=== PATIENT | female | born 1995 | race Caucasian/White ===

== ENCOUNTER → 2018-02-05 | Outpatient (CLI) | payer BC ==
[2018-02-05 16:08] LABS: HEMATOCRIT 38.9 % (36.0-47.0); HEMOGLOBIN 12.9 g/dl (12.0-15.5); MEAN CORPUSCULAR HEMOGLOBIN 29.9 pg (27.0-33.0); MEAN CORPUSCULAR HGB CONC 33.2 g/dl (32.0-36.5); MEAN CORPUSCULAR VOLUME 90.3 fl (80.0-96.0); PLATELET COUNT, AUTOMATED 261 10^3/uL (150-450); RED BLOOD COUNT 4.31 10^6/uL (4.00-5.40); RED CELL DISTRIBUTION WIDTH 13.6 % (11.5-14.5); WHITE BLOOD COUNT 10.9 10^3/uL (4.0-10.0)
[2018-02-05 16:33] LABS: ALBUMIN 3.7 GM/DL (3.2-5.2); ALBUMIN/GLOBULIN RATIO 1.06 (1.00-1.93); ALKALINE PHOSPHATASE 71 U/L (45-117); ALT/SGPT 25 U/L (12-78); ANION GAP 10 MEQ/L (8-16); AST/SGOT 16 U/L (7-37); BILIRUBIN,TOTAL 0.2 MG/DL (0.2-1.0); BLOOD UREA NITROGEN 14 MG/DL (7-18); CALCIUM LEVEL 8.9 MG/DL (8.5-10.1); CARBON DIOXIDE LEVEL 25 MEQ/L (21-32); CHLORIDE LEVEL 109 MEQ/L (98-107); CREATININE FOR GFR 0.74 MG/DL (0.55-1.30); GLOMERULAR FILTRATION RATE > 60.0 (>60); GLUCOSE, FASTING 73 MG/DL (70-100); POTASSIUM SERUM 3.8 MEQ/L (3.5-5.1); SODIUM LEVEL 144 MEQ/L (136-145); TOTAL PROTEIN 7.2 GM/DL (6.4-8.2)
[2018-02-05 16:51] LABS: MALB URINE SIEMENS 6.8 MG/L; MAU/CREAT RATIO 4.5 MCG/MG (0.0-30.0)
== END ==
LOC: M LAB 14:25
DX: R53.83 Other fatigue (principal)
CPT/HCPCS: 80053

== ENCOUNTER 2018-05-29 08:33 | Outpatient (RCR) | payer BC, MEDICAID | END 2018-06-01 | LOC: M PT 08:33 | DX: M22.42 Chondromalacia patellae, left knee (principal) ==

== ENCOUNTER 2018-06-21 21:17 | Emergency (ER) | payer BC, MEDICAID | END 2018-06-22 00:20 | disposition home or self-care (01) | LOC: M ED 06-22 00:20 | DX: J06.9 Acute upper respiratory infection, unspecified (principal) | CPT/HCPCS: 87880 ==

== ENCOUNTER 2018-06-29 13:15 | Outpatient (RCR) | payer BC, MEDICAID ==
[~2018-06-29 13:15] MED LIST: CLAR1TAB2 PO
== END 2018-07-02 ==
LOC: M PT 13:15
PROVIDERS: ATTEND Orthopaedic Surgery
DX: M22.42 Chondromalacia patellae, left knee (principal)

== ENCOUNTER → 2018-08-30 | Outpatient (RCR) | payer BC, MEDICAID | LOC: M PT 08-07 09:08 | PROVIDERS: ATTEND Physician Assistant Surgical | DX: Z47.89 Encounter for other orthopedic aftercare (principal); M22.42 Chondromalacia patellae, left knee; S80.02XA Contusion of left knee, initial encounter ==

== ENCOUNTER → 2018-09-05 | Outpatient (CLI) | payer BC, MEDICAID ==
[2018-09-05 15:33] LABS: BASO % 0.3 % (0.0-1.0); EOS # 0.2 10^3/uL (0.0-0.50); EOS % 1.7 % (0.0-3.0); HEMATOCRIT 38.4 % (36.0-47.0); HEMOGLOBIN 12.8 g/dl (12.0-15.5); LYMPH # 3.1 10^3/uL (1.5-6.5); LYMPH % 27.2 % (24.0-44.0); MEAN CORPUSCULAR HEMOGLOBIN 30.8 pg (27.0-33.0); MEAN CORPUSCULAR HGB CONC 33.3 g/dl (32.0-36.5); MEAN CORPUSCULAR VOLUME 92.3 fl (80.0-96.0); MONO # 0.8 10^3/uL (0.0-0.8); MONO % 6.8 % (0.0-5.0); NEUTROPHILS # 7.3 10^3/uL (1.8-7.7); NEUTROPHILS % 63.6 % (36.0-66.0); PLATELET COUNT, AUTOMATED 266 10^3/uL (150-450); RED BLOOD COUNT 4.16 10^6/uL (4.00-5.40); WHITE BLOOD COUNT 11.5 10^3/uL (4.0-10.0)
[2018-09-05 15:33] LABS: APPEARANCE, URINE CLOUDY (CLEAR); BACTERIA, URINE AUTO 1+ (NEGATIVE); BILIRUBIN, URINE AUTO NEGATIVE (NEGATIVE); BLOOD, URINE BLOOD 1+ (NEGATIVE); COLOR, URINE YELLOW (YELLOW); GLUCOSE, URINE (UA) AUTO NEGATIVE (NEGATIVE); KETONE, URINE AUTO TRACE mg/dL (NEGATIVE); LEUKOCYTE ESTERASE, URINE AUTO NEGATIVE (NEGATIVE); MUCUS, URINE SMALL (NEGATIVE); NITRITE, URINE AUTO NEGATIVE (NEGATIVE); PROTEIN, URINE AUTO NEGATIVE (NEGATIVE); RBC, URINE AUTO 17 /HPF (0-3); SPECIFIC GRAVITY URINE AUTO 1.027 (1.002-1.035); SQUAMOUS EPITHELIAL CELL UR AU 32 /HPF (0-6); UROBILINOGEN, URINE AUTO 0.2 mg/dL (0.0-2.0); WBC, URINE AUTO 2 /HPF (0-3)
[2018-09-05 15:53] LABS: ALBUMIN 3.8 GM/DL (3.2-5.2); ALT/SGPT 19 U/L (12-78); BILIRUBIN,TOTAL 0.4 MG/DL (0.2-1.0); BLOOD UREA NITROGEN 11 MG/DL (7-18); CALCIUM LEVEL 8.6 MG/DL (8.5-10.1); CARBON DIOXIDE LEVEL 28 MEQ/L (21-32); CHLORIDE LEVEL 104 MEQ/L (98-107); CREATININE FOR GFR 0.67 MG/DL (0.55-1.30); GLOMERULAR FILTRATION RATE > 60.0 (>60); GLUCOSE, FASTING 85 MG/DL (70-100); POTASSIUM SERUM 4.1 MEQ/L (3.5-5.1); SODIUM LEVEL 138 MEQ/L (136-145); TOTAL PROTEIN 7.2 GM/DL (6.4-8.2)
== END ==
LOC: M LAB 14:50
PROVIDERS: ATTEND Physician Assistant Medical
DX: Z02.2 Encounter for examination for admission to residential institution (principal)

== ENCOUNTER 2018-09-27 08:46 | Outpatient (RCR) | payer BC, MEDICAID | END 2018-09-30 | LOC: M PT 08:46 | PROVIDERS: ATTEND Physician Assistant Surgical | DX: Z47.89 Encounter for other orthopedic aftercare (principal); M22.42 Chondromalacia patellae, left knee; S80.02XA Contusion of left knee, initial encounter ==

== ENCOUNTER 2018-10-03 14:51 | Outpatient (RCR) | payer BC, MEDICAID | END 2018-10-30 | LOC: M PT 14:51 | PROVIDERS: ATTEND Physician Assistant Surgical | DX: M94.262 Chondromalacia, left knee (principal) ==

== ENCOUNTER → 2018-11-08 | Outpatient (CLI) | payer BC, MEDICAID ==
[2018-11-08 16:54] LABS: BASO # 0.1 10^3/uL (0.0-0.2); BASO % 0.4 % (0.0-1.0); EOS # 0.2 10^3/uL (0.0-0.50); EOS % 1.6 % (0.0-3.0); HEMATOCRIT 40.4 % (36.0-47.0); HEMOGLOBIN 13.1 g/dl (12.0-15.5); LYMPH % 24.4 % (24.0-44.0); MEAN CORPUSCULAR HEMOGLOBIN 31.1 pg (27.0-33.0); MEAN CORPUSCULAR HGB CONC 32.4 g/dl (32.0-36.5); MONO # 0.8 10^3/uL (0.0-0.8); MONO % 6.4 % (0.0-5.0); NEUTROPHILS # 8.2 10^3/uL (1.8-7.7); NEUTROPHILS % 66.7 % (36.0-66.0); PLATELET COUNT, AUTOMATED 307 10^3/uL (150-450); RED BLOOD COUNT 4.21 10^6/uL (4.00-5.40); WHITE BLOOD COUNT 12.2 10^3/uL (4.0-10.0)
[2018-11-08 17:02] LABS: ALBUMIN 3.8 GM/DL (3.2-5.2); ALT/SGPT 20 U/L (12-78); BILIRUBIN,TOTAL 0.3 MG/DL (0.2-1.0); BLOOD UREA NITROGEN 11 MG/DL (7-18); CALCIUM LEVEL 8.7 MG/DL (8.5-10.1); CARBON DIOXIDE LEVEL 26 MEQ/L (21-32); CHLORIDE LEVEL 107 MEQ/L (98-107); CREATININE FOR GFR 0.78 MG/DL (0.55-1.30); GLOMERULAR FILTRATION RATE > 60.0 (>60); GLUCOSE, FASTING 80 MG/DL (70-100); POTASSIUM SERUM 4.2 MEQ/L (3.5-5.1); RHEUMATOID FACTOR QUANT < 10.0 IU/ML (<15.0); SODIUM LEVEL 141 MEQ/L (136-145); THYROID STIMULATING HORMONE 0.612 uIU/ML (0.358-3.740); TOTAL PROTEIN 6.9 GM/DL (6.4-8.2)
[2018-11-08 17:46] LABS: ERYTHROCYTE SEDIMENTATION RATE 17 mm/hr (0-20)
[2018-11-12 14:50] LABS: ANTINUCLEAR ANTIBODIES DIRECT Negative
== END ==
LOC: M LRY 13:18
PROVIDERS: ATTEND Physician Assistant Medical
DX: R51 Headache (principal)

== ENCOUNTER → 2018-11-30 | Outpatient (CLI) | payer BC, MEDICAID ==
[2018-12-04 08:57] LABS: IGASUB3 49.5 mg/dL (13.4-97.9); IgA SERUM (part of Subclasses) 372 mg/dL (87-352); TISSUE TRANSGLUTAMINASE IgA <2 U/mL (0-3); UNITSIGA FOR GLIADIN IGA 3 units (0-19); UNITSIGG FOR GLIADIN IGG 1 units (0-19)
== END ==
LOC: M LAB 11:46
PROVIDERS: ATTEND Internal Medicine Gastroenterology
DX: R19.7 Diarrhea, unspecified (principal)

== ENCOUNTER → 2018-12-20 | Outpatient (REF) | payer BC, MEDICAID ==
[2018-12-28 09:02] LABS: FATS NEUTRAL Normal (.); FATS TOTAL Normal (.); PANCREATIC ELASTASE STOOL >500 (>200)
== END ==
LOC: M LAB REF 13:22
PROVIDERS: ATTEND Internal Medicine Gastroenterology
DX: R19.7 Diarrhea, unspecified (principal)

== ENCOUNTER → 2019-02-11 | Outpatient (REF) | payer BC, MEDICAID | LOC: M LAB LCGH 11:37 | PROVIDERS: ATTEND Family Medicine | DX: Z12.4 Encounter for screening for malignant neoplasm of cervix (principal); N76.0 Acute vaginitis ==

== ENCOUNTER → 2020-01-22 | Outpatient (CLI) | payer BC, MEDICAID ==
[2020-01-22 17:49] LABS: HIV 1&2 SCREEN CENTAUR NEGATIVE (NEGATIVE)
[2020-01-22 20:52] LABS: CHLAMYDIA DNA AMPLIFICATION NEGATIVE (NEGATIVE); GC DNA AMPLIFICATION NEGATIVE (NEGATIVE)
[2020-03-18 13:33] LABS: HSV IgM TYPES 1&2 SEE SEPARATE REPORT
== END ==
LOC: M WUC 14:19
PROVIDERS: ATTEND Physician Assistant
DX: Z11.3 Encounter for screening for infections with a predominantly sexual mode of transmission (principal)

== ENCOUNTER 2020-07-17 02:46 | Emergency (ER) | payer BC, MEDICAID ==
[~2020-07-17] VITALS: Ht 154.9 cm; Wt 67.3 kg
[2020-07-17 02:48] VITALS: BP 104/44
--- OUTSIDE RECORDS SUMMARY | 2020-07-17 02:57 | CCD ---
Author Author [facility] Organization [facility] Address Unknown Phone Unavailable Care Team Providers Care Tire Trucker Name Role Phone Phyllis, Zaki PA Unavailable Unavailable Phyllis, Zaki PA Unavailable Unavailable Phyllis, Zaki PA Unavailable Unavailable Phyllis, Zaki PA Unavailable Unavailable Phyllis, Zaki PA Unavailable Unavailable Phyllis, Zaki PA Unavailable Unavailable Phyllis, Zaki PA Unavailable Unavailable Phyllis, Zaki PA Unavailable Unavailable Phyllis, Zaki PA Unavailable Unavailable Phyllis, Zaki PA Unavailable Unavailable Phyllis, Zaki PA Unavailable Unavailable Phyllis, Zaki PA Unavailable Unavailable Phyllis, Zaki PA Unavailable Unavailable Phyllis, Zaki PA Unavailable Unavailable Phyllis, Zaki PA Unavailable Unavailable Phyllis, Zaki PA Unavailable Unavailable Phyllis, Zaki PA Unavailable Unavailable Phyllis, Zaki PA Unavailable Unavailable Phyllis, Zaki PA Unavailable Unavailable Phyllis, Zaki PA Unavailable Unavailable Phyllis, Zaki PA Unavailable Unavailable Phyllis, Zaki PA Unavailable Unavailable Phyllis, Zaki PA Unavailable Unavailable Phyllis, Zaki PA Unavailable Unavailable Phyllis, Zaki PA Unavailable Unavailable Phyllis, Zaki PA Unavailable Unavailable Phyllis, Zaki PA Unavailable Unavailable Phyllis, Zaki PA Unavailable Unavailable Phyllis, Zaki PA Unavailable Unavailable Phyllis, Zaki PA Unavailable Unavailable Phyllsi, Zaki PA Unavailable Unavailable Phyllis, Zaki PA Unavailable Unavailable Phyllis, Zaki PA Unavailable Unavailable Phyllis, Zaki PA Unavailable Unavailable Phyllis, Zaki PA Unavailable Unavailable Phyllis, Zaki PA Unavailable Unavailable Phyllis, Zaki PA Unavailable Unavailable Phyllis, Zaki PA Unavailable Unavailable Phyllis, Zaki PA Unavailable Unavailable Phyllis, Zaki PA Unavailable Unavailable Phyllis, Zaki PA Unavailable Unavailable Phyllis, Zaki PA Unavailable Unavailable Phyllis, Zaki PA Unavailable Unavailable Phyllis, Zaki PA Unavailable Unavailable Phyllis, Zaki PA Unavailable Unavailable Phyllis, Zaki PA Unavailable Unavailable Phyllis, Zaki PA Unavailable Unavailable Phyllis, Zaki PA Unavailable Unavailable Sanchez Rudd MD Unavailable Unavailable Sanchez Rudd MD Unavailable Unavailable Sanchez Rudd MD Unavailable Unavailable Sanchez Rudd MD Unavailable Unavailable Sanchez Rudd MD Unavailable Unavailable Sanchez Rudd MD Unavailable Unavailable Sanchez Rudd MD Unavailable Unavailable Sanchez Rudd MD Unavailable Unavailable Sanchez Rudd MD Unavailable Unavailable Sanchez Rudd MD Unavailable Unavailable Sanchez Rudd MD Unavailable Unavailable Sanchez Rudd MD Unavailable Unavailable Sanchez Rudd MD Unavailable Unavailable Sanchez Rudd MD Unavailable Unavailable Sanchez Rudd MD Unavailable Unavailable Sanchez Rudd MD Unavailable Unavailable Sanchez Rudd MD Unavailable Unavailable Sanchez Rudd MD Unavailable Unavailable Sanchez Rudd MD Unavailable Unavailable Sanchez Rudd MD Unavailable Unavailable Sanchez Rudd MD Unavailable Unavailable Sanchez Rudd MD Unavailable Unavailable Sanchez Rudd MD Unavailable Unavailable Sanchez Rudd MD Unavailable Unavailable Sanchez Rudd MD Unavailable Unavailable Sanchez Rudd MD Unavailable Unavailable Sanchez Rudd MD Unavailable Unavailable Sanchez Rudd MD Unavailable Unavailable Sanchez Rudd MD Unavailable Unavailable Sanchez Rudd MD Unavailable Unavailable Sanchez Rudd MD Unavailable Unavailable Sanchez Rudd MD Unavailable Unavailable Sanchez Rudd MD Unavailable Unavailable Sanchez Rudd MD Unavailable Unavailable Sanchez Rudd MD Unavailable Unavailable Sanchez Rudd MD Unavailable Unavailable Sanchez Rudd MD Unavailable Unavailable Sanchez Rudd MD Unavailable Unavailable Sanchez Rudd MD Unavailable Unavailable Sanchez Rudd MD Unavailable Unavailable Sanchez Rudd MD Unavailable Unavailable Sanchez Rudd MD Unavailable Unavailable Sanchez Rudd MD Unavailable Unavailable Sanchez Rudd MD Unavailable Unavailable Sanchez Rudd MD Unavailable Unavailable Sanchez Rudd MD Unavailable Unavailable Sanchez Rudd MD Unavailable Unavailable Sanchez Rudd MD Unavailable Unavailable Sanchez Rudd MD Unavailable Unavailable Sanchez Rudd MD Unavailable Unavailable Sanchez Rudd MD Unavailable Unavailable Sanchez Rudd MD Unavailable Unavailable Rudd, Sanchez Martin MD Unavailable Unavailable Rudd, Sanchez Martin MD Unavailable Unavailable Rudd, Sanchez Martin MD Unavailable Unavailable Rudd, Sanchez Martin MD Unavailable Unavailable Rudd, Sanchez Martin MD Unavailable Unavailable Rudd, Sanchez Martin MD Unavailable Unavailable Rudd, Sanchez Martin MD Unavailable Unavailable Rudd, Sanchez Martin MD Unavailable Unavailable Rudd, Sanchez Martin MD Unavailable Unavailable Rudd, Sanchez Martin MD Unavailable Unavailable Rudd, Sanchez Martin MD Unavailable Unavailable Rudd, Sanchez Martin MD Unavailable Unavailable Rudd, Sanchez Martin MD Unavailable Unavailable Rudd, Sanchez Martin MD Unavailable Unavailable Rudd, Sanchez Martin MD Unavailable Unavailable Rudd, Sanchez Martin MD Unavailable Unavailable Rudd, Sanchez Martin MD Unavailable Unavailable Rudd, Sanchez Martin MD Unavailable Unavailable Rudd, Sanchez Martin MD Unavailable Unavailable Rudd, Sanchez Martin MD Unavailable Unavailable Rudd, Sanchez Martin MD Unavailable Unavailable Rudd, Sanchez Martin MD Unavailable Unavailable Rudd, Sanchez Martin MD Unavailable Unavailable Rudd, Sanchez Martin MD Unavailable Unavailable Rudd, Sanchez Martin MD Unavailable Unavailable Rudd, Sanchez Martin MD Unavailable Unavailable Rudd, Sanchez Martin MD Unavailable Unavailable Rudd, Sanchez Martin MD Unavailable Unavailable Rudd, Sanchez Martin MD Unavailable Unavailable Rudd, Sanchez Martin MD Unavailable Unavailable Rudd, Sanchez Martin MD Unavailable Unavailable Rudd, Sanchez Martin MD Unavailable Unavailable Rudd, Sanchez Martin MD Unavailable Unavailable Rudd, Sanchez Martin MD Unavailable Unavailable Rudd, Sanchez Martin MD Unavailable Unavailable Rudd, Sanchez Martin MD Unavailable Unavailable Rudd, Sanchez Martin MD Unavailable Unavailable Doctor Provided, Family PHYS No Family Unavailable U navailable O'mahamed, A Lobo PA Unavailable Unavailable O'mahamed, A Lobo PA Unavailable Unavailable O'mahamed, A Lobo PA Unavailable Unavailable O'mahamed, A Lobo PA Unavailable Unavailable O'mahamed, A Lobo PA Unavailable Unavailable O'mahamed, A Lobo PA Unavailable Unavailable O'mahamed, A Lobo PA Unavailable Unavailable O'mahamed, A Lobo PA Unavailable Unavailable O'mahamed, A Lobo PA Unavailable Unavailable O'mahamed, A Lobo PA Unavailable Unavailable O'mahamed, A Lobo PA Unavailable Unavailable O'mahamed, A Lobo PA Unavailable Unavailable O'mahamed, A Lobo PA Unavailable Unavailable O'mahamed, A Lobo PA Unavailable Unavailable O'mahamed, A Lobo PA Unavailable Unavailable O'mahamed, A Lobo PA Unavailable Unavailable O'mahamed, A Lobo PA Unavailable Unavailable O'mahamed, A Lobo PA Unavailable Unavailable O'mahamed, A Lobo PA Unavailable Unavailable O'mahamed, A Lobo PA Unavailable Unavailable O'mahamed, A Lobo PA Unavailable Unavailable O'mahamed, A Lobo PA Unavailable Unavailable O'mahamed, A Lobo PA Unavailable Unavailable O'mahamed, A Lobo PA Unavailable Unavailable O'mahamed, A Lobo PA Unavailable Unavailable O'mahamed, A Lobo PA Unavailable Unavailable O'mahamed, A Lobo PA Unavailable Unavailable O'mahamed, A Lobo PA Unavailable Unavailable O'mahamed, A Lobo PA Unavailable Unavailable O'mahamed, A Lobo PA Unavailable Unavailable O'mahamed, A Lobo PA Unavailable Unavailable O'mahamed, A Lobo PA Unavailable Unavailable Re-disclosure Warning The records that you are about to access may contain information from federally-assisted alcohol or drug abuse programs. If such information is present, then the following federally mandated warning applies: This information has been disclosed to you from records protected by federal confidentiality rules (42 CFR part 2). The federal rules prohibit you from making any further disclosure of this information unless further disclosure is expressly permitted by the written consent of the person to whom it pertains or as otherwise permitted by 42 CFR part 2. A general authorization for the release of medical or other information is NOT sufficient for this purpose. The Federal rules restrict any use of the information to criminally investigate or prosecute any alcohol or drug abuse patient.The records that you are about to access may contain highly sensitive health information, the redisclosure of which is protected by Article 27-F of the [facility] Public Health law. If you continue you may have access to information: Regarding HIV / AIDS; Provided by facilities licensed or operated by the [facility] Office of Mental Health; or Provided by the [facility] Office for People With Developmental Disabilities. If such information is present, then the following [facility] mandated warning applies: This information has been disclosed to you from confidential records which are protected by state law. State law prohibits you from making any further disclosure of this information without the specific written consent of the person to whom it pertains, or as otherwise permitted by law. Any unauthorized further disclosure in violation of state law may result in a fine or mcc sentence or both. A general authorization for the release of medical or other information is NOT sufficient authorization for further disc losure. Family History Family Member Name Family Member Gender Family Member Status Date o f Status Description Data Source(s) Unknown Unknown Problem [facility] ([facility]) Unknown Male Problem [facility] ([facility] ) Encounters Encounter Providers Location Date Indications Data Source(s ) Outpatient Attender: Zaki ROWLAND [facility] 05/21/2020 02:00:00 PM EST [facility] ([facility]) Outpatient Attender: Lobo ROWLAND [facility] 04/21/2020 08:30:00 AM EDT [facility] ([facility]) Outpatient Attender: Zaki ROWLAND [facility] 02/19/2020 02:40:00 PM EDT [facility] ([facility]) Outpatient Attender: Zaki ROWLAND [facility] 01/16/2020 01:20:00 PM EDT [facility] ([facility]) Outpatient Attender: Mario Rudd MD 06/28/2019 08:28:00 AM EST Z00.00 [facility] Z00.00 Outpatient Attender: Mario Rudd MDReferrer: No Family Doct or Provided [facility]: Mario Rudd MD 06/07/2019 02:20:00 PM [facility] Medications Medication Brand Name Start Date Product Form Dose Route Admi nistrative Instructions Pharmacy Instructions Status Indications Reaction Description Data Source(s) 0.3 % 05/22/2020 12:00:00 AM EST drops 5 INSTILL 2 DROPS IN THE AFFECTED EYE(S) THREE TIMES A DAY FOR 7 DAYS INSTILL 2 DROPS IN THE AFFECTED EYE(S) T HREE TIMES A DAY FOR 7 DAYS SOLD: 05/22/2020 [facility] Fluoxetine 10 MG Oral Capsule Fluoxetine HCL 01/16/2020 12:00:00 AM E DT ORAL active [facility] ([facility]) 10 mg 01/16/2020 12:00:00 AM EDT capsule 30 TAKE ONE CAPSULE BY MOUTH EVERY DAY TAKE ONE CAPSULE BY MOUTH EVERY DAY SOLD: 01/16/2020 [facility] Insurance Providers Payer name Policy type / Coverage type Policy ID Covered constitution party ID Covered constitution party's relationship to chowdhury Policy [place] Plan Information EMEDNY [id number] SP [id number] [place] P[place] 302/307 [id number] SP [id number] [employer] BCBS B [id number] S [id number] O UNAVAILABLE UNAVAILA BLE MEDICAID [id number] SP [id number] [place] P[place] 302/307 [id number] MO2 [id number] [employer]BS Health Maintenance Organization (HMO) [id number] Family Dependent [id number] [place] [id number] Self [id number] BS [place] Commercial [id number] Family Dependent [id number] [place] [id number] Self [id number] BS [place] Commercial [id number] Family Dependent [id number] [place] [id number] Self [id number] BS [place] Commercial [id number] Family Dependent [id number] [place] [id number] Self [id number] BS [place] Commercial [id number] Family Dependent [id number] [place] P[place] 302/307 [id number] MO2 [id number] [place] [id number] Self [id number] BS [place] Commercial [id number] Family Dependent [id number] [place] [id number] Self [id number] BS [place] Commercial [id number] Self [id number] [place] P[place] 302/307 [id number] MO2 [id number] Results ID Date Data Source [id number] 04/21/2020 12:00:00 AM EDT [facility] Patient Name: JOSE [id number] Date of : 1995[place] [address] Date of Exam: 04/21/2020#: Fax: [phone] EXAM: HAND RIGHT (COMPLETE) X-RAYCLINICAL INFORMATION: Persistent pain after trauma one month ago.Four views. These images were obtained using digital radiography.Multiple views show the joint spaces to be symmetric and well maintained.There is no evidence of acute fracture or destructive osseous lesion.BREA Brock/Dylan freeman for referring ERNESTINA BOWSER to our office. Electronically Signed - BOUCHRA KENT DO 04/21/20 16:17 Name Value Range Interpretation Code Description Data Emmie rce(s) Supporting Document(s) ID Date Data Source [id number] 01/22/2020 02:25:00 PM EDT [facility] ([facility]) Name Value Range Interpretation Code Description Data Emmie rce(s) Supporting Document(s) Chlamydia Dna Amplification Laboratory test result Normal (applies to non- numeric results) [facility] ([facility]) A negative test result does not exclude the possibility of infection because test results may be affected by improper specimen collection, technical error, specimen mix-up, concurrent antibiotic therapy, or the number of organisms in the specimen which may be below the sensitivity of the test. GC Dna Amplification Laboratory test result Norm al (applies to non-numeric results) [facility] ([facility]) A negative test result does not exclude the possibility of infection because test results may be affected by improper specimen collection, technical error, specimen mix-up, concurrent antibiotic therapy, or the number of organisms in the specimen which may be below the sensitivity of the test. ID Date Data Source [id number] 01/22/2020 02:25:00 PM EDT [facility] ([facility]) Name Value Range Interpretation Code Description Data Emmie rce(s) Supporting Document(s) Reagin Ab [Presence] in Serum by RPR Laboratory test result Normal (applies to non-numeric results) [facility] ID Date Data Source [id number] 01/22/2020 02:25:00 PM EDT [facility] ([facility]) Name Value Range Interpretation Code Description Data Emmie rce(s) Supporting Document(s) HSV IgM Types 1&2 Laboratory test result 0.00-0.90 Normal (applies to non- numeric results) [facility] ([facility]) SEE SEPARATE REPORT Testing performed at reference lab . Report copy to follow on a separate form. 03/18/20 REF LAB#:[id number] ID Date Data Source [id number] 01/22/2020 02:25:00 PM EDT [facility] ([facility]) Name Value Range Interpretation Code Description Data Emmie rce(s) Supporting Document(s) HIV 1+2 Ab [Presence] in Serum Laboratory test result Normal (applies to non- numeric results) [facility] ([facility]) <content>This assay was performed utiliz ing a chemiluminescent</content>
<content>principle technique for the simultaneous qualitative</content>
<content>detection of HIV-1 p24 antigen & antibodies to HIV-1</content>
<content>(including group O) & HIV-2 using the Siemens Centaur XP</content>
<content>system.</content>
<content>The estimated 95% confidence interval for sensitivity of</content>
<content>this antigen/antibody combination assay for HIV-1&2</content>
<content>antibodies is 99.7-100% and HIV p24 antigen is 89.4-99.9%.</content>
<content>The estimated 95% confidence interval for specificity of</content>
<content>this antigen/antibody combination in low risk populations is</content>
<content>99.6-99.8%.</content>
<content></content> ID Date Data Source [id number] 06/28/2019 08:58:00 AM [facility] Name Value Range Interpretation Code Description Data Emmie rce(s) Supporting Document(s) Leukocytes [#/volume] in Blood by Automated count 10.6 10*3/uL 4.45-1 0.71 [facility] Erythrocytes [#/volume] in Blood by Automated count 4.65 10*6/uL 4.20 -5.40 N [facility] Hemoglobin [Moles/volume] in Blood 13.9 g/dL 10.7-15.4 [facility] Hematocrit [Volume Fraction] of Blood by Automated count 42.8 % 3 7-47 [facility] Erythrocyte mean corpuscular volume [Ent itic volume] in Cord blood by Automated count 92.0 fL 80-96 [facility] Erythrocyte mean corpuscular hemoglobin [Entitic mass] by Automated count 29.9 pg 27-31 [facility] Erythrocyte mean corpuscular hemoglobin concentration [Mass/volume] in Cord blood 32.5 g/dL 33-37 Below low normal [facility] Erythrocyte distribution width [Entitic volume] by Automated count 12 % 11-15 N [facility] Platelets [#/volume] in Blood by Automated count 301 10*3/uL 130-472 [facility] Platelet mean volume [Entitic volume] in Blood 8.9 fL 9.1-13. 1 Below low normal [facility] Neutrophils/100 leukocytes in Blood by Automated count 66.9 % 41- 77 [facility] Neutrophils [#/volume] in Blood by Automated count 7.1 U 1.7-7.6 [facility] Lymphocytes/100 leukocytes in Blood by Automated count 24.6 % 14- 46 [facility] Lymphocytes [#/volume] in Blood by Automated count 2.6 U 0.6-4.6 [facility] Monocytes/100 leukocytes in Blood by Automated count 6.3 % 4-12 [facility] Monocytes [#/volume] in Blood by Automated count 0.7 U 0.2-1.2 N [facility] Eosinophils/100 leukocytes in Blood by Automated count 1.5 % 0-7 N [facility] Eosinophils [#/volume] in Blood by Automated count 0.2 U 0.0-0.5 N [facility] Basophils/100 leukocytes in Blood by Automated count 0.2 % 0.4-1.3 Below low normal [facility] Basophils [#/volume] in Blood by Automated count 0.0 U 0.0-0.2 N [facility] NUCLEATED RED BLOOD CELL 0 % [facility] NUCLEATED RED BLOOD CELL# 0 U [facility] Immature granulocytes [Presence] in Blood by Automated count 0-2 N [facility] Immature granulocytes [#/volume] in Blood by Automated count 0.1 U 0-0.1 N [facility] Manual Differential panel - Blood NO [facility] ID Date Data Source [id number] 06/28/2019 09:48:00 AM EST [facility] Name Value Range Interpretation Code Description Data Emmie rce(s) Supporting Document(s) Urea nitrogen [Mass/volume] in Serum or Plasma 10 mg/dL 9-23 [facility] Sodium [Moles/volume] in Serum or Plasma 141 mmol/L 132-146 [facility] Potassium [Moles/volume] in Serum or Plasma 3.8 mmol/L 3.5-5.5 [facility] Chloride [Moles/volume] in Serum or Plasma 107 mmol/L 99-109 [facility] Carbon dioxide, total [Moles/volume] in Serum or Plasma 26 mmol/L 20 -31 [facility] Anion gap in Serum or Plasma 12 mmol/L 8-16 [facility] Glucose [Mass/volume] in Serum or Plasma 62 mg/dL 74-106 Below low normal [facility] Creatinine 0.8 mg/dL 0.5-1.1 [facility] Glomerular filtration rate/1.73 sq M.pre dicted [Volume Rate/Area] in Serum or Plasma Greater Than 60 ABOVE 60 [facility] Alanine aminotransferase [Enzymatic acti vity/volume] in Serum or Plasma by With P-5'-P 18 U/L 10-49 [facility] ital Aspartate aminotransferase [Enzymatic ac tivity/volume] in Serum or Plasma by With P-5'-P 13 U/L 0-33 [facility] pital Alkaline phosphatase [Enzymatic activity/volume] in Serum or Plasma 81 U/L 45-129 [facility] Calcium [Mass/volume] in Serum or Plasma 9.1 mg/dL 8.5-10.1 [facility] Bilirubin.total [Mass/volume] in Serum or Plasma 0.3 mg/dL 0.3-1.2 [facility] Albumin [Mass/volume] in Serum or Plasma by Bromocresol purple (BCP) dye binding method 4.1 g/dL 3.2-4.8 [facility] Protein [Mass/volume] in Serum or Plasma 7.6 g/dL 5.7-8.2 [facility] ID Date Data Source [id number] 06/29/2019 06:15:00 AM [facility] Name Value Range Interpretation Code Description Data Emmie rce(s) Supporting Document(s) HIV 1+2 Ab+HIV1 p24 Ag [Presence] in Serum or Plasma by Immu noassay Non Reactive [facility] Performed at: RN - [facility] [place] [id number] Director: Haley Interiano MD, Phone: [phone] ID Date Data Source [id number] 06/28/2019 09:48:00 AM [facility] Name Value Range Interpretation Code Description Data Emmie rce(s) Supporting Document(s) Thyrotropin [Units/volume] in Serum or Plasma by Detec tion limit <= 0.005 mIU/L 1.32 u[iU]/mL 0.35-5.50 [facility] al ID Date Data Source [id number] 06/28/2019 07:52:00 AM [facility] Patient Name: Ernestina Bowser : 1995 Sex: F Pt Unit #: [id number] Location:[facility] Provider: Visit Date/Time: 06/28/19 Primary Insurance: BC/BS [facility] Secondary Insurance: Self Pay Intake Vital Signs 06/28/19 08:06 Current Height 5 ft 0.5 in Current Weight 176 lb 8 oz BMI 33.9 BP 110/66 Blood Pressure Location Lt brachial Position Sitting Respiration 16 Pulse 92 Pulse Strength Normal Pulse Source Palpation Temp 98.5 F Temp Source Oral Pulse Oximetry (%) 95 Oxygen Delivery Method room air Intake Visit Reasons: Substance abuse Nurse Note: 23 yr old female here today to follow up on medications r/t hx of substance abuse. We are still waiting on updated insurance form with 's information to order the Vivitrol. Pt does consent to HIV testing today. Pt states she has been having episodes of dizziness when standingfrom a sitting or laying position. x 2 weeks. Compounder Helper Required: No Accompanied by: Self / Same as Patient Is patient in pain?: No Allergies No Known Drug Allergies Allergy (Unverified 11/23/15 14:31) Is last menstrual period known: Yes Last menstrual period: 05/29/19 Post menopausal: No Patient : No Fall Risk History of falls: No Ambulatory Aid:: None Gait/Transferring:: Normal Medications:: Psychotropics HIV Testing Offer - ages 13-64 HIV testing Offer: Yes Requirement for HIV testing offer been met?: Consents to testing today/Pretest education received and acknowledged Do you need a note to return Do you need a note to return to daycare/school/sports/work: No PFSH Family History Mother No problems noted. Father No problems noted. Brother No problems noted. Brother No problems noted. Social History Does the Patient have a Healthcare Proxy: No Does Patient have a DNR?: No Does Patient have a Living Will?: No Menstrual Date of last menstrual period: 05/29/19 HPI Additional HPI HPI Details: She is due for her Vivitrol injection and will get today's at [facility]. Issues with dizziness for the past two weeks. No better and no worse with time. Worse when going from sitting to standing. Some fatigue. Has a control implant in and getting heavy periods as a result of this. Review of Systems Const Denies fatigue and Denies malaise ENT Details: Gums bleed when she brushes her teeth. For a long time. Denies nosebleeds. Card Denies chest pain, Denies chest pain with activity, Denies irregular heart rhythm, Denies palpitations and Denies dyspnea Resp Denies dyspnea GI Denies change in stool character, Denies constipation and Denies diarrhea Denies difficulty voiding and Denies dysuria Details: Heavy periods since starting the implant. Endo Denies fatigue and Denies palpitations Exam Const General: cooperative and healthy appearing Neck Neck: normal visual inspection and supple Neck mass: No Thyroid: thyroid normal Lymphatic: no lymphadenopathy noted Resp Effort Inspection: normal respiratory effort Auscultation: clear to auscultation bilaterally, no rales, no rhonchi and no wheezes Cardio Rate: regular rate Rhythm: regular rhythm Heart Sounds: S1 normal, S2 normal, no gallops, no murmurs and no rubs Psych Appearance: grossly normal Affect: normal affect Attitude: cooperative Asse ssment Plan Assessment Plan (1) Dizziness: Status: Acute Code(s): R42 - Dizziness and giddiness SNOMED Code(s): 668168388 Category: Medical Plan - Mario Rudd MD: Most likely explanation is anemia from menorrhagia due to progesterone implant. Check CBC, CMP and TSH today to rule out anemia and other metabolic issues. This is unlikely cardiac in nature as there are no signs and symptoms other than dizziness that suggest this. Orders: Orders: CMP Today TSH Today CBC W AUTO DIFF Today (2) Uncomplicated opioid abuse: Status: Acute Code(s): F11.10 - Opioid abuse, uncomplicated SNOMED Code(s): 8359736 Category: Medical Plan - Mario Rudd MD: Continue Viitrol. We are working on transitioning her here. Recheck one month, sooner as needed. (3) Substance abuse: Code(s): F19.10 - Other psychoactive substance abuse, uncomplicated Orders Other Orders: Orders: HIV (4th Gen w/ Rfx) Today Z00.00 Electronically Signed By: <Electronically signed by Mario Rudd MD> Date/Time Signed: 06/28/19 0833 Name Value Range Interpretation Code Description Data Emmie rce(s) Supporting Document(s) ID Date Data Source [id number] 06/07/2019 02:26:00 PM [facility] Patient Name: Ernestina Bowser : 1995 Sex: F Pt Unit #: [id number] Location:[facility] Provider: Visit Date/Time: 06/07/19 Primary Insurance: BC/BS [facility] Secondary Insurance: Self Pay Intake Vital Signs 06/07/19 14:38 Current Height 5 ft 0.5 in Current Weight 173 lb 8 oz BMI 33.3 BP 110/64 Blood Pressure Location Lt brachial Position Sitting Respiration 16 Pulse 87 Pulse Strength Normal Pulse Source Palpation Temp 98.6 F Temp Source Oral Pulse Oximetry (%) 99 Oxygen Delivery Method room air Intake Visit Reasons: Substance abuse Nurse Note: 23 yr old female here today to discuss Vivitrol Injections r/t hx of substance abuse. Ptis currently getting the injections from [facility] outpatient services. Pt was offered a job at [facility] isunable to get the injections there if employed by them. Compounder Helper Required: No Accompanied by: Mother Is patient in pain?: No Allergies No Known Drug Allergies Allergy (Unverified 11/23/15 14:31) Is last menstrual period known: Yes Last menstrual period: 05/20/19 Post menopausal: No Patient : No Fall Risk History of falls: No Ambulatory Aid:: None Gait/Transferring:: Normal Medications:: Psychotropics PHQ-2/9 Over the last 2 weeks, how often have you been bothered by any of the following problems? 1. Little interest or pleasure in doing things: not at all 2. Feeling down, depressed, or hopeless: not at all Total score: 0 3. Trouble falling or staying asleep, or sleeping too much: more than half the days 4. Feeling tired or having little energy: more than half the days 5. Poor appetite or overeating: not at all 6. Feeling bad about yourself - or that you are a failure or have let yourself and your family down:not at all 7. Trouble co ncentrating on things, such as reading the newspaper or watching television: several days 8. Moving or speaking so slowly that other people could have noticed? - Or the opposite - being so fidgety or restless that you have been moving around a lot more than usual: not at all 9. Thoughts that you would be better off or of hurting yourself in some way: not at all Total score: 5 If you checked off any problems, how difficult have these problems made it for you to do your work, take care of things at home, or get along with other people?: somewhat difficult Source: Developed by Drs. Srinivasan Reyes, Laura Villatoro, Julio Cesar Rivas and colleagues, with an educational roddy from [employer]. HIV Testing Offer - ages 13-64 HIV testing Offer: Yes Requirement for HIV testing offer been met?: Consents to testing today/Pretest education received and acknowledged SBIRT Annual Questionnaire Are you currently in recovery for alcohol or substance use?: Yes How many times in the past year have you had 4 or more drinks in a day?: None How many times in the past year have you used a recreational drug or used a prescription medication for nonmedical reasons?: None Do you need a note to return Do you need a note to return to daycare/school/sports/work: No PFSH Family History Mother No problems noted. Father No problems noted. Brother No problems noted. Brother No problems noted. Menstrual Date of last menstrual period: 05/20/19 HPI Additional HPI HPI Details: She has been in recovery for the past 15 months and for almost all of that time has been onmonthly Vivitrol injections. She has not had any adverse reactions to this. She is generally healthyand feeling well. Here with mother today. Review of Systems Const Denies fatigue and Denies malaise Card Denies chest pain and Denies dyspnea Resp Denies dyspnea GI Denies change in stool character, Denies constipation and Denies diarrhea Denies difficulty voiding and Denies dysuria Endo Denies fatigue Exam Const General: cooperative and healthy appearing Resp Effort Inspection: normal respiratory effort Auscultation: clear to auscultation bilaterally, no rales, no rhonchi and no wheezes Cardio Rate: regular rate Rhythm: regular rhythm Heart Sounds: S1 normal, S2 normal, no gallops, no murmurs and no rubs GI Palpation: soft, no hepatosplenomegaly, no hernias, no masses and nontender Psych Appearance: grossly normal Affect: normal affect Attitude: cooperative Quality Reporting Depression/Bipolar (159/160/161/169/177) Total score: 5 Assessment Plan Assessment Plan (1) Substance abuse: Code(s): F19.10 - Other psychoactive substance abuse, uncomplicated Plan - Mario Rudd MD: She has been doing very well for the past 15 months with the Vivitrol. She wants to switch here for the Vivitrol so she can seek work through [employer] and I think that this is reasonable. We will plan onadministering her next shot here in about 3 weeks. She is signing a release for [employer] so we can gether records from there and discuss how to make this transition. Electronically Signed By: <Electronically signed by Mario Rudd MD> Date/Time Signed: 06/07/19 2497 Name Value Range Interpretation Code Description Data Emmie rce(s) Supporting Document(s) Procedure Social History Code Duration Value Status Description Data Source(s ) Smoking 01/16/2020 12:00:00 AM EDT Patient has never smoked co mpleted Patient has never smoked [facility] ([facility]) Vital Signs ID Date Data Source UNK Name Value Range Interpretation Code Description Data Source(s) [place] body weight 105 [lb_av] 105 [lb_av] [facility] T ([facility]) Oxygen saturation in Arterial blood by Pulse oximetry 98 % 98 % [facility] ([facility]) Body temperature 98.3 [degF] 98.3 [degF] [facility] ([facility]) Respiratory rate 18 /min 18 /min [facility] ( [facility]) Heart rate 114 /min 114 /min [facility] ([facility]) Body mass index (BMI) [Ratio] 31.7 kg/m2 31.7 k g/m2 [facility] ([facility]) Body weight 168.00 [lb_av] 168.00 [lb_av] [facility] T ([facility]) Body height 61 [in_i] 61 [in_i] [facility] ([facility]) 5'1" Diastolic blood pressure 78 mm[Hg] 78 mm[Hg] [facility] ([facility]) Systolic blood pressure 114 mm[Hg] 114 mm[Hg] M EDENT ([facility]) [place] body weight 105 [lb_av] 105 [lb_av] [facility] T ([facility]) Oxygen saturation in Arterial blood by Pulse oximetry 99 % 99 % [facility] ([facility]) Body temperature 98.7 [degF] 98.7 [degF] [facility] ([facility]) Respiratory rate 18 /min 18 /min [facility] ( [facility]) Heart rate 104 /min 104 /min [facility] ([facility]) Body mass index (BMI) [Ratio] 32.6 kg/m2 32.6 k g/m2 [facility] ([facility]) Body weight 172.50 [lb_av] 172.50 [lb_av] [facility] T ([facility]) Body height 61 [in_i] 61 [in_i] [facility] ([facility]) 5'1" Diastolic blood pressure 64 mm[Hg] 64 mm[Hg] [facility] ([facility]) Systolic blood pressure 116 mm[Hg] 116 mm[Hg] M EDENT ([facility]) [place] body weight 105 [lb_av] 105 [lb_av] [facility] T ([facility]) Oxygen saturation in Arterial blood by Pulse oximetry 99 % 99 % [facility] ([facility]) Body temperature 98.7 [degF] 98.7 [degF] [facility] ([facility]) Respiratory rate 18 /min 18 /min [facility] ( [facility]) Heart rate 102 /min 102 /min [facility] ([facility]) Body mass index (BMI) [Ratio] 35.6 kg/m2 35.6 k g/m2 [facility] ([facility]) Body weight 188.25 [lb_av] 188.25 [lb_av] [facility] T ([facility]) Body height 61 [in_i] 61 [in_i] [facility] ([facility]) 5'1" Diastolic blood pressure 62 mm[Hg] 62 mm[Hg] [facility] ([facility]) Systolic blood pressure 112 mm[Hg] 112 mm[Hg] [facility] Oxygen saturation in Arterial blood by Pulse oximetry 98 % 98 % [facility] ([facility]) Body temperature 98.9 [degF] 98.9 [degF] [facility] ([facility]) Respiratory rate 18 /min 18 /min [facility] ( [facility]) Heart rate 83 /min 83 /min [facility] ([facility]) Body mass index (BMI) [Ratio] 36.3 kg/m2 36.3 k g/m2 [facility] ([facility]) Body weight 192.00 [lb_av] 192.00 [lb_av] [facility] T ([facility]) Body height 61 [in_i] 61 [in_i] [facility] ([facility]) 5'1" Diastolic blood pressure 82 mm[Hg] 82 mm[Hg] [facility] ([facility]) Systolic blood pressure 114 mm[Hg] 114 mm[Hg] Carolyn JENNINGS ([facility])
--- OUTSIDE RECORDS SUMMARY | 2020-07-17 02:57 | CCD | Continuity of Care Document ---
Author Author Ernestina MULLEN Organization [place] [address] Phone [phone] Care Team Providers Care Express Manager Name Role Phone Cheyenne Maldonado D.O. AUTM [phone] Problems Description No Information Available Social History Type Date Description Comments Sex Unknown ETOH Use Occasionally consumes alcohol 1- 2 times a month Tobacco Use Start: Unknown Patient has never smoked Recreational Drug Use Former Drug User Smoking Status Reviewed: 01/16/20 Patient has never smoked Exercise Type/Frequency Cardio Sun Exposure Does not use sunscreen Seat Belt/Car Seat Always uses seat belt Allergies, Adverse Reactions, Alerts Description No Known Drug Allergies Medications Active Medications SIG Qnty Indications Ordering Provide r Date Fluoxetine HCL 10mg Capsules tab by mouth every day 30caps F41.1 Cheyenne Maldonado D.O. 01/15 Melatonin Quick Dissolve 10mg Tabl ets Sub 1 by mouth every day Unknown Nexplanon 68mg Implant Unknown Immunizations Description No Information Available Vital Signs Date Vital Result Comment 04/21/2020 8:24am BP Systolic 116 mmHg BP Diastolic 64 mmHg Height 61 inches 5'1" Weight 172.50 lb BMI (Body Mass Index) 32.6 kg/m2 Heart Rate 104 /min Respiratory Rate 18 /min Body Temperature 98.7 F O2 % BldC Oximetry 99 % [place] Body Weight 105 lb 02/19/2020 2:45pm BP Systolic 112 mmHg BP Diastolic 62 mmHg Height 61 inches 5'1" Weight 188.25 lb BMI (Body Mass Index) 35.6 kg/m2 Heart Rate 102 /min Respiratory Rate 18 /min Body Temperature 98.7 F O2 % BldC Oximetry 99 % [place] Body Weight 105 lb Results Test Acquired Date Facility Test Result H/L Range Note Laboratory test finding 01/22/2020 [facility] Outpatient T esting (Registration) [address] [place] [address] [phone] HIV 1&2 Screen Centaur NEGATIVE Normal Negative 1 H Simplex Virus Type 1&2 Igm 01/22/2020 [facility] Outpati ent Testing (Registration) [address] [place] [address] [phone] HSV IgM Types 1&2 SEE SEPARATE REP <SEE NOTE> Normal 0.00-0.90 2 Laboratory test finding 01/22/2020 [facility] Outpatient T esting (Registration) [address] [place] [address] [phone] Syphilis NONREACTIVE Normal Nonreactive GC & Chlamydia By Amp 01/22/2020 [facility] Outpatient Maria Luz ting (Registration) [address] [place] [address] [phone] Chlamydia Dna Amplification NEGATIVE Normal Nega tive 3 GC Dna Amplification NEGATIVE Normal Negative 4 1 This assay was performed uti lizing a chemiluminescent principle technique for the simultaneous qualitative detection of HIV-1 p24 antigen & antibodies to HIV-1 (including group O) & HIV-2 using the [employer] Spa[employer] XP system. The estimated 95% confidence interval for sensitivity of this antigen/antibody combination assay for HIV-1&2 antibodies is 99.7-100% and HIV p24 antigen is 89.4-99.9%. The estimated 95% confidence interval for specificity of this antigen/antibody combination in low risk populations is 99.6-99.8%. 2 SEE SEPARATE REPORT Testing performed at reference lab . Report copy to follow on a separate form. 03/18/20 REF LAB#:[id number] 3 A negative test result does not exclude the possibility of infection because test results may be affected by improper specimen collection, technical error, specimen mix-up, concurrent antibiotic therapy, or the number of organisms in the specimen which may be below the sensitivity of the test. 4 A negative test result does not exclude the possibility of infection because test results may be affected by improper specimen collection, technical error, specimen mix-up, concurrent antibiotic therapy, or the number of organisms in the specimen which may be below the sensitivity of the test. Procedures Description No Information Available Medical Devices Description No Information Available Encounters Type Date Location Provider Dx Diagnosis Office Visit 02/19/2020 2:40p [facility] KASHIF Medeiros F41.1 Generalized anxiety disorder Office Visit 01/16/2020 1:20p [facility] KASHIF Medeiros Z11.3 Encntr screen for infections w sexl mode of transmiss F41.1 Generalized anxiety disorder F19.11 Other psychoactive substance abuse, in remission Assessments Date Code Description Provider 04/21/2020 M79.641 Pain in right hand KASHIF Santos 02/19/2020 F41.1 Generalized anxiety disorder KASHIF Christopher 01/16/2020 Z11.3 Encounter for screen ing for infections with a predominantly sexual mode of transmission KASHIF Medeiros 01/16/2020 F41.1 Generalized anxiety disorder KASHIF Christopher 01/16/2020 F19.11 Other psychoactive substance abu se, in remission KASHIF Medeiros Plan of Treatment Future Appointment(s):* 05/21/2020 3:00 pm - KASHIF Medeiros at [facility] 04/21/2020 - KASHIF Molina* M79.641 Pain in right hand* New Xrays:* Hand Min 3 Views RT, Scheduled: 04/21/20 Functional Status Description No Information Available Mental Status Description No Information Available Referrals Description No Information Available
--- OUTSIDE RECORDS SUMMARY | 2020-07-17 02:57 | CCD | Continuity of Care Document ---
Author Author Ernestina SANCHEZ Organization Unknown Address [address] [place] [address] 6 [address] [place] [address] Phone [phone] Care Team Providers Care Pattern Stamper Name Role Phone Cheyenne Maldonado D.O. AUTM [phone] Problems Description No Information Available Social History [...] Sub 1 by mouth every day Unknown Immunizations Description No Information Available Vital Signs Date Vital Result Comment 05/21/2020 3:02pm BP Systolic 114 mmHg BP Diastolic 78 mmHg Height 61 inches 5'1" Weight 168.00 lb BMI (Body Mass Index) 31.7 kg/m2 Heart Rate 114 /min Respiratory Rate 18 /min Body Temperature 98.3 F O2 % BldC Oximetry 98 % [place] Body Weight 105 lb 04/21/2020 8:24am BP Systolic 116 mmHg BP Diastolic 64 mmHg Height 61 inches 5'1" Weight 172.50 lb BMI (Body Mass Index) 32.6 kg/m2 Heart Rate 104 /min Respiratory Rate 18 /min Body Temperature 98.7 F O2 % BldC Oximetry 99 % [place] Body Weight 105 lb Results Test Acquired Date Facility Test Result H/L Range Note Laboratory test finding 01/22/2020 [facility] Outpatient T esting (Registration) [address] [place] [address] [phone] HIV 1&2 Screen Centaur NEGATIVE Normal Negative 1 H Simplex Virus Type 1&2 Igm 01/22/2020 [facility] Outpati ent Testing (Registration) [address] [place] [address] [phone] HSV IgM Types 1&2 SEE SEPARATE REP <SEE NOTE> Normal 0.00-0.90 2 Laboratory test finding 01/22/2020 [facility] Outpatient T esting (Registration) [address] [place] [address] [phone] Syphilis NONREACTIVE Normal Nonreactive GC & Chlamydia By Amp 01/22/2020 [facility] Outpatient Maria Luz ting (Registration) [address] [place] [address] [phone] Chlamydia Dna Amplification NEGATIVE Normal Nega tive 3 GC Dna Amplification NEGATIVE Normal Negative 4 1 This assay was performed uti lizing a chemiluminescent principle technique for the simultaneous qualitative detection of HIV-1 p24 antigen & antibodies to HIV-1 (including group O) & HIV-2 using the [employer] SAr XP system. The estimated 95% confidence interval for sensitivity of this antigen/antibody combination assay for HIV-1&2 antibodies is 99.7-100% and HIV p24 antigen is 89.4-99.9%. The estimated 95% confidence interval for specificity of this antigen/antibody combination in low risk populations is 99.6-99.8%. 2 SEE SEPARATE REPORT Testing performed at reference lab . Report copy to follow on a separate form. 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, in remission Assessments Date Code Description Provider 05/21/2020 F41.1 Generalized anxiety disorder KASHIF Christopher 04/21/2020 M79.641 Pain in right hand KASHIF Santos 02/19/2020 F41.1 Generalized anxiety disorder KASHIF Christopher 01/16/2020 Z11.3 Encounter for screen ing for infections with a predominantly sexual mode of transmission KASHIF Medeiros 01/16/2020 F41.1 Generalized anxiety disorder KASHIF Christopher 01/16/2020 F19.11 Other psychoactive substance abu se, in remission KASHIF Medeiros Plan of Treatment Future Appointment(s):* 11/18/2020 3:00 pm - KASHIF Medeiros at [facility] 05/21/2020 - KASHIF Medeiros* F41.1 Generalized anxiety disorder* Comments: * Doing well with current medication at its current dose. Call for any concerns. * Follow up:* 6 months with me for preventative. Functional Status Description No Information Available Mental Status Description No Information Available Referrals Description No Information Available
--- OUTSIDE RECORDS SUMMARY | 2020-07-17 02:57 | CCD | Continuity of Care Document ---
Author Author Ernestina SANCHEZ Organization Unknown Address [address] [place] [address] 6 [address] [place] [address] Phone [phone] Care Team Providers Care Industry Operations Investigator Name Role Phone Cheyenne Maldonado D.O. AUTM Problems Description No Information Available Social History [...] F O2 % BldC Oximetry 98 % [place] Body Weight 105 lb 04/21/2020 8:24am BP Systolic 116 mmHg BP Diastolic 64 mmHg Height 61 inches 5'1" Weight 172.50 lb BMI (Body Mass Index) 32.6 kg/m2 Heart Rate 104 /min Respiratory Rate 18 /min Body Temperature 98.7 F O2 % BldC Oximetry 99 % [place] Body Weight 105 lb Results Test Acquired Date Facility Test Result H/L Range Note Laboratory test finding 01/22/2020 [facility] Outpatient T esting (Registration) [address] [place] [address] [phone] HIV 1&2 Screen [facility] NEGATIVE Normal Negative 1 H Simplex Virus Type 1&2 Igm 01/22/2020 [facility] Outpati ent Testing (Registration) [address] [place] [address] [phone] HSV IgM Types 1&2 SEE SEPARATE REP <SEE NOTE> Normal 0.00-0.90 2 Laboratory test finding 01/22/2020 [facility] Outpatient T esting (Registration) [address] [place] [address] [phone] Syphilis NONREACTIVE Normal Nonreactive GC & Chlamydia By Amp 01/22/2020 [facility] Outpatient Maria Luz ting (Registration) [address] [place] [address] [phone] Chlamydia Dna Amplification NEGATIVE Normal Nega tive 3 GC Dna Amplification NEGATIVE Normal Negative 4 1 This assay was performed uti lizing a chemiluminescent principle technique for the simultaneous qualitative detection of HIV-1 p24 antigen & antibodies to HIV-1 (including group O) & HIV-2 using the [employer] XP system. The estimated 95% confidence interval for sensitivity of this antigen/antibody combination assay for HIV-1&2 antibodies is 99.7-100% and HIV p24 antigen is 89.4-99.9%. The estimated 95% confidence interval for specificity of this antigen/antibody combination in low risk populations is 99.6-99.8%. 2 SEE SEPARATE REPORT Testing performed at reference lab . Report copy to follow on a separate form. 03/18/20 REF LAB#:[id number] 3 A negative test result does not [...] Date Location Provider Dx Diagnosis Office Visit 05/21/2020 3:00p [facility] KASHIF Medeiros F41.1 Generalized anxiety disorder Office Visit 04/21/2020 8:30a [facility] KASHIF Molina M79.641 Pain in right hand Office Visit 02/19/2020 2:40p [facility] KASHIF Medeiros F41.1 Generalized anxiety disorder Office Visit 01/16/2020 1:20p [facility] KASHIF Medeiros Z11.3 Encntr screen for infections [...] 11/18/2020 3:00 pm - KASHIF Medeiros at [facility] Functional Status Description No Information Available Mental Status Description No Information Available Referrals Description No Information Available
--- OUTSIDE RECORDS SUMMARY | 2020-07-17 02:57 | CCD | Continuity of Care Document ---
Author Author Ernestina MULLEN Organization Unknown [place] [address] Phone [phone] Care Team Providers Care Feltmaker And Weigher Name Role Phone Cheyenne Maldonado D.O. AUTM [...] F O2 % BldC Oximetry 99 % [place] Body Weight 105 lb 02/19/2020 2:45pm BP Systolic 112 mmHg BP Diastolic 62 mmHg Height 61 inches 5'1" Weight 188.25 lb BMI (Body Mass Index) 35.6 kg/m2 Heart Rate 102 /min Respiratory Rate 18 /min Body Temperature 98.7 F O2 % BldC Oximetry 99 % [place] Body Weight 105 lb Results Test Acquired Date Facility Test Result H/L Range Note Laboratory test finding 01/22/2020 [facility] Outpatient T esting (Registration) [address] [place] [address] [phone] HIV 1&2 Screen [facility] NEGATIVE Normal Negative 1 H Simplex Virus Type 1&2 Igm 01/22/2020 [facility] Outpati ent Testing (Registration) [address] [place] [address] [phone] HSV IgM Types 1&2 SEE SEPARATE REP <SEE NOTE> Normal 0.00-0.90 2 Laboratory test finding 01/22/2020 [facility] Outpatient T esting (Registration) [address] [place] [address] [phone] Syphilis NONREACTIVE Normal Nonreactive GC & Chlamydia By Amp 01/22/2020 [facility] Outpatient Maria Luz ting (Registration) [address] [place] [address] [phone] Chlamydia Dna Amplification NEGATIVE Normal Nega tive 3 GC Dna Amplification NEGATIVE Normal Negative 4 1 This assay was performed uti lizing a chemiluminescent principle technique for the simultaneous qualitative detection of HIV-1 p24 antigen & antibodies to HIV-1 (including group O) & HIV-2 using the [employer] XP system. The estimated 95% confidence interval for sensitivity of this antigen/antibody combination assay for HIV-1&2 antibodies is 99.7-100% and HIV p24 antigen is 89.4-99.9%. The estimated 95% confidence interval for specificity of this antigen/antibody combination in low risk populations is 99.6-99.8%. 2 SEE SEPARATE REPORT Testing performed at reference lab . Report copy to follow on a separate form. 03/18/20 REF LAB#:[id number] A negative test result does not [...] Provider Dx Diagnosis Office Visit 04/21/2020 8:[address]a [facility] KASHIF Molina M79.641 Pain in right hand Office Visit 02/19/2020 2:40p [facility] KASHIF Medeiros F41.1 Generalized anxiety disorder Office Visit 01/16/2020 1:20p [facility] KASHIF Medeiros Z11.3 Encntr screen for infections [...] 05/21/2020 3:00 pm - KASHIF Medeiros at [facility] Functional Status Description No Information Available Mental Status Description No Information Available Referrals Description No Information Available
[2020-07-17] MEDS ORDERED: FLUO10CA16 (03:06)
[2020-07-17 03:24] LABS: BASO % 0.2 % (0.0-1.0); EOS # 0.1 10^3/uL (0.0-0.5); EOS % 0.4 % (0.0-3.0); HEMATOCRIT 42.8 % (36.0-47.0); LYMPH # 2.7 10^3/uL (1.5-5.0); LYMPH % 21.5 % (24.0-44.0); MEAN CORPUSCULAR HEMOGLOBIN 29.4 pg (27.0-33.0); MEAN CORPUSCULAR HGB CONC 32.7 g/dl (32.0-36.5); MEAN CORPUSCULAR VOLUME 89.9 fl (80.0-96.0); MONO # 0.6 10^3/uL (0.0-0.8); MONO % 4.9 % (0.0-5.0); NEUTROPHILS # 9.2 10^3/uL (1.5-8.5); NEUTROPHILS % 72.8 % (36.0-66.0); PLATELET COUNT, AUTOMATED 302 10^3/uL (150-450); RED BLOOD COUNT 4.76 10^6/uL (4.00-5.40); WHITE BLOOD COUNT 12.6 10^3/uL (4.0-10.0)
[2020-07-17] MEDS ORDERED: GI COCKTAIL 50ML BTL(HYOSCYAMINE/MAALOX/LIDOCAINE VISCOUS)(1:3:1) PO ONE (03:30)
[2020-07-17 04:14] LABS: BLOOD UREA NITROGEN 10 MG/DL (7-18); CALCIUM LEVEL 9.6 MG/DL (8.5-10.1); CARBON DIOXIDE LEVEL 26 MEQ/L (21-32); CHLORIDE LEVEL 105 MEQ/L (98-107); CK-MB VALUE MASS 2.4 NG/ML (<3.6); CPK CREATINE PHOSPHOKINASE 71 U/L (26-192); CREATININE FOR GFR 0.82 MG/DL (0.55-1.30); GLOMERULAR FILTRATION RATE > 60.0 (>60); GLUCOSE, FASTING 113 MG/DL (70-100); MB/CK RELATIVE INDEX 3.38 (< OR =4); POTASSIUM SERUM 3.1 MEQ/L (3.5-5.1); SODIUM LEVEL 140 MEQ/L (136-145); TROPONIN I < 0.02 NG/ML (< 0.10)
--- NOTE | 2020-07-17 04:23 | REPVR ---
PROCEDURE INFORMATION: Exam: XR Chest, 2 Views Exam date and time: 07/17/2020 3:51 AM Age: 24 years old Clinical indication: Chest pain TECHNIQUE: Imaging protocol: XR of the chest Views: 2 views. COMPARISON: No relevant prior studies available. FINDINGS: Lungs: Unremarkable. No consolidation. Pleural space: Unremarkable. No pleural effusion. No pneumothorax. Heart/Mediastinum: Unremarkable. No cardiomegaly. Bones/joints: Unremarkable. IMPRESSION: No acute findings. Electronically signed by: Brenton Mercado On 07/17/2020 04:23:40 AM
[2020-07-17] MEDS ORDERED: NS 1,000 ML IV ONE (04:30)
[2020-07-17] MEDS ORDERED: PEPC1TAB5 PO (05:44)
[2020-07-17] MEDS ORDERED: CARA1TAB6 PO (05:44)
[2020-07-17] MEDS ORDERED: OMEP40CA97 PO (05:44)
[2020-07-17] MEDS ORDERED: OMEPRAZOLE 20 MG CAP PO ONE (05:45)
[2020-07-17] MEDS ORDERED: SUCRALFATE 1 GM TAB PO ONE (05:45)
[2020-07-17] MEDS ORDERED: FAMOTIDINE IV BAG 20 MG in IV 1 EA IV ONE (05:45)
--- OUTSIDE RECORDS SUMMARY | 2020-07-17 05:58 | CCD ---
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 If you continue you may have access to information: Regarding HIV / AIDS; Provided by facilities licensed or operated by the [facility] Office of Mental Health; or Provided by the [facility] Office for People With Developmental Disabilities. If such information is present, then the following [facility] mandated warning applies: This information has [...] law may result in a fine or half-way sentence or both. A general authorization for the release of medical or other information is NOT sufficient authorization for further disc losure. Family History Family Member Name Family Member Gender Family Member Status Date o f Status Description Data Source(s) Unknown Unknown Problem [facility] Unknown Male Problem [facility] ([facility]) Encounters Encounter Providers Location Date Indications Data Source(s ) Outpatient Attender: Zaki [facility]OWLAND [facility] 05/21/2020 02:00:00 PM EST [facility] ([facility]) Outpatient Attender: Lobo ROWLAND [facility] 04/21/2020 08:30:00 AM EDT [facility] ([facility]) Outpatient Attender: Zaki ROWLAND [facility] 02/19/2020 02:40:00 PM EDT [facility] ([facility]) Outpatient Attender: Zaki ROWLAND [facility] 01/16/2020 01:20:00 PM EDT [facility] ([facility]) Outpatient Attender: Mario Rudd MD 06/28/2019 08:28:00 AM EST Z00.00 [facility] Z00.00 Outpatient Attender: Mario Rudd MDReferrer: No Family Doct or Provided 06/28/2019 07:58:00 [facility]: Mario Rudd MD 06/07/2019 02:20:00 PM [facility] Medications Medication Brand Name [...] DAY FOR 7 DAYS SOLD: 05/22/2020 [facility] Fluoxetine 10 MG Oral Capsule Fluoxetine HCL 01/16/2020 12:00:00 AM E DT ORAL active [facility] ([facility]) 10 mg 01/16/2020 12:00:00 AM EDT capsule 30 TAKE ONE CAPSULE BY MOUTH EVERY DAY TAKE ONE CAPSULE BY MOUTH EVERY DAY SOLD: 01/16/2020 [facility] Insurance Providers Payer name Policy type / Coverage type Policy ID Covered alliance party ID Covered alliance party's relationship to chowdhury Policy [place] Plan Information [place]BS [place] PPO 302/307 [id number] SP [id number] EMEDNY [id number] SP [id number] EXCELLUS BCBS B [id number] S [id number] [id number] O UNAVAILABLE UNAVAILA BLE MEDICAID [id number] SP [id number] [place] PPO 302/307 [id number] MO2 [id number] [employer] BCBS Health Maintenance Organization (HMO) [id number] Family Dependent [id number] [place] Med[place] [id number] Self [id number] BS [place] [employer] [id number] Family Dependent [id number] [place] [id number] Self [id number] BS [place] [employer] [id number] Family Dependent [id number] [place] [id number] Self [id number] BS [place] [employer] [id number] Family Dependent [id number] [place] [id number] Self [id number] BS [place] [employer] [id number] Family Dependent [id number] [place] PPO 302/307 [id number] MO2 [id number] [place] [id number] Self [id number] BS [place] [employer] [id number] Family Dependent [id number] [place] Med[place] Part [place] [id number] Self [id number] BS [place] [employer] [id number] Self [id number] [place] PPO 302/307 [id number] MO2 [id number] Results ID Date Data Source [id number] 04/21/2020 12:00:00 AM EDT [facility] Patient Name: ERNESTINA [address] Date of : 1995[place] [address] Date of Exam: 04/21/2020#: Fax: [phone] EXAM: HAND RIGHT (COMPLETE) X-RAYCLINICAL INFORMATION: Persistent pain after trauma one month ago.Four views. These images were obtained using digital radiography.Multiple views show the joint spaces to be symmetric and well maintained.There is no evidence of acute fracture or destructive osseous lesion.BREA Brock/Dylan freeman for referring ERNESTINA BOWSER to our office. Electronically Signed - BOUCHRA KNET DO 04/21/20 16:17 Name Value Range Interpretation Code Description Data Emmie rce(s) Supporting Document(s) ID Date Data Source [id number] 01/22/2020 02:25:00 PM EDT [facility] ([facility]) Name Value Range Interpretation Code Description Data Emmie rce(s) Supporting Document(s) Chlamydia Dna Amplification Laboratory test result Normal (applies to non- numeric results) [facility] ([facility]) A negative test result does not exclude the possibility of infection because test results may be affected by improper specimen collection, technical error, specimen mix-up, concurrent antibiotic therapy, or the number of organisms in the specimen which may be below the sensitivity of the test. GC Dna Amplification Laboratory test result Norm al (applies to non-numeric results) [facility] ([facility]) A negative test result does not exclude the possibility of infection because test results may be affected by improper specimen collection, technical error, specimen mix-up, concurrent antibiotic therapy, or the number of organisms in the specimen which may be below the sensitivity of the test. ID Date Data Source [id number] 01/22/2020 02:25:00 PM EDT [facility] ([facility]) Name Value Range Interpretation Code Description Data Emmie rce(s) Supporting Document(s) Reagin Ab [Presence] in Serum by RPR Laboratory test result Normal (applies to non-numeric results) [facility] ([facility]) ID Date Data Source [id number] 01/22/2020 02:25:00 PM EDT [facility] ([facility]) Name Value Range Interpretation Code Description Data Emmie rce(s) Supporting Document(s) HSV IgM Types 1&2 Laboratory test result 0.00-0.90 Normal (applies to non- numeric results) [facility]) SEE SEPARATE REPORT Testing performed at reference lab . Report copy to follow on a separate form. 03/18/20 REF LAB#:[id number] ID Date Data Source [id number] 01/22/2020 02:25:00 PM EDT [facility] ([facility]) Name Value Range Interpretation Code Description Data Emmie rce(s) Supporting Document(s) HIV 1+2 Ab [Presence] in Serum Laboratory test result Normal (applies to non- numeric results) [facility]) <content>This assay was performed utiliz ing a [...] is</content>
<content>99.6-99.8%.</content>
<content></content> ID Date Data Source [id number] 06/28/2019 08:58:00 AM EST [facility] Name Value Range Interpretation Code Description Data Emmie rce(s) Supporting Document(s) Leukocytes [#/volume] in Blood by Automated count 10.6 10*3/uL 4.45-1 0.71 N [facility] Erythrocytes [#/volume] in Blood by Automated count 4.65 10*6/uL 4.20 -5.40 N [facility] Hemoglobin [Moles/volume] in Blood 13.9 g/dL 10.7-15.4 N [facility] Hematocrit [Volume Fraction] of Blood by Automated count 42.8 % 3 7-47 N [facility] Erythrocyte mean corpuscular volume [Ent itic volume] in Cord blood by Automated count 92.0 fL 80-96 N [facility] Erythrocyte mean corpuscular hemoglobin [Entitic mass] by Automated count 29.9 pg 27-31 N [facility] Erythrocyte mean corpuscular hemoglobin concentration [Mass/volume] in Cord blood 32.5 g/dL 33-37 Below low normal [facility] Erythrocyte distribution width [Entitic volume] by Automated count 12 % 11-15 N [facility] Platelets [#/volume] in Blood by Automated count 301 10*3/uL 130-472 N [facility] Platelet mean volume [Entitic volume] in Blood 8.9 fL 9.1-13. 1 Below low normal [facility] Neutrophils/100 leukocytes in Blood by Automated count 66.9 % 41- 77 N [facility] Neutrophils [#/volume] in Blood by Automated count 7.1 U 1.7-7.6 N [facility] Lymphocytes/100 leukocytes in Blood by Automated count 24.6 % 14- 46 N [facility] Lymphocytes [#/volume] in Blood by Automated count 2.6 U 0.6-4.6 N [facility] Monocytes/100 leukocytes in Blood by Automated count 6.3 % 4-12 N [facility] Monocytes [#/volume] in Blood by Automated count 0.7 U 0.2-1.2 N [facility] Eosinophils/100 leukocytes in Blood by Automated count 1.5 % 0-7 N [facility] Eosinophils [#/volume] in Blood by Automated count 0.2 U 0.0-0.5 N [facility] Basophils/100 leukocytes in Blood by Automated count 0.2 % 0.4-1.3 Below low normal [facility] Basophils [#/volume] in Blood by Automated count 0.0 U 0.0-0.2 N [facility] NUCLEATED RED BLOOD CELL 0 % [facility] NUCLEATED RED BLOOD CELL# 0 [facility] Immature granulocytes [Presence] in Blood by Automated count 0-2 N [facility] Immature granulocytes [#/volume] in Blood by Automated count 0.1 U 0-0.1 N [facility] Manual Differential panel - Blood NO [facility] ID Date Data Source [id number] 06/28/2019 09:48:00 AM EST [facility] Name Value Range Interpretation Code Description Data Emmie rce(s) Supporting Document(s) Urea nitrogen [Mass/volume] in Serum or Plasma 10 mg/dL 9-23 N [facility] Sodium [Moles/volume] in Serum or Plasma 141 mmol/L 132-146 [facility] Potassium [Moles/volume] in Serum or Plasma 3.8 mmol/L 3.5-5.5 [facility] Chloride [Moles/volume] in Serum or Plasma 107 mmol/L 99-109 [facility] Carbon dioxide, total [Moles/volume] in Serum or Plasma 26 mmol/L 20 -31 [facility] Anion gap in Serum or Plasma 12 mmol/L 8-16 [facility] Glucose [Mass/volume] in Serum or Plasma 62 mg/dL 74-106 Below low normal [facility] Creatinine 0.8 mg/dL 0.5-1.1 [facility] Glomerular filtration rate/1.73 sq M.pre dicted [Volume Rate/Area] in Serum or Plasma Greater Than 60 ABOVE 60 [facility] Alanine aminotransferase [Enzymatic acti vity/volume] in Serum or Plasma by With P-5'-P 18 U/L 10-49 [facility] ital Aspartate aminotransferase [Enzymatic ac tivity/volume] in Serum or Plasma by With P-5'-P 13 U/L 0-33 [facility] pital Alkaline phosphatase [Enzymatic activity/volume] in Serum or Plasma 81 U/L 45-129 [facility] Calcium [Mass/volume] in Serum or Plasma 9.1 mg/dL 8.5-10.1 [facility] Bilirubin.total [Mass/volume] in Serum or Plasma 0.3 mg/dL 0.3-1.2 [facility] Albumin [Mass/volume] in Serum or Plasma by Bromocresol purple (BCP) dye binding method 4.1 g/dL 3.2-4.8 [facility] Protein [Mass/volume] in Serum or Plasma 7.6 g/dL 5.7-8.2 [facility] ID Date Data Source [id number] 06/29/2019 06:15:00 AM [facility] Name Value Range Interpretation Code Description Data Emmie rce(s) Supporting Document(s) HIV 1+2 Ab+HIV1 p24 Ag [Presence] in Serum or Plasma by Immu noassay Non Reactive [facility] Performed at: RN - [facility] [place] [id number] Director: Haley Interiano MD, Phone: [phone] ID Date Data Source [id number] 06/28/2019 09:48:00 AM [facility] Name Value Range Interpretation Code Description Data Emmie rce(s) Supporting Document(s) Thyrotropin [Units/volume] in Serum or Plasma by Detec tion limit <= 0.005 mIU/L 1.32 u[iU]/mL 0.35-5.50 [facility] al ID Date Data Source [id number] 06/28/2019 07:52:00 AM [facility] Patient Name: Ernestina Bowser : 1995 Sex: F Pt Unit #: [id number] Location:[facility] Provider: Visit Date/Time: 06/28/19 Primary Insurance: /BS [facility] Secondary Insurance: Self Pay Intake Vital Signs [...] sitting or laying position. x 2 weeks. Log Handler Required: No Accompanied by: Self / Same [...] Vivitrol injection and will get today's at [facility]. Issues with dizziness for the past two [...] R42 - Dizziness and giddiness SNOMED Code(s): 093350931 Category: Medical Plan - Mario Rudd MD: [...] F11.10 - Opioid abuse, uncomplicated SNOMED Code(s): 3475364 Category: Medical Plan - Mario Rudd MD: [...] rce(s) Supporting Document(s) ID Date Data Source [id number] 06/07/2019 02:26:00 PM [facility] Patient Name: Ernestina Bowser : 1995 Sex: F Pt Unit #: [id number] Location:[facility] Provider: Visit Date/Time: 06/07/19 Primary Insurance: /BS [facility] Secondary Insurance: Self Pay Intake Vital Signs [...] abuse. Ptis currently getting the injections from [facility] outpatient services. Pt was offered a job at [employer] [employer] to get the injections there if employed by them. Log Handler Required: No Accompanied by: Mother Is patient [...] and colleagues, with an educational roddy from [employer]. HIV Testing Offer - ages 13-64 HIV [...] Vivitrol so she can seek work through [employer] and I think that this is reasonable. We will plan onadministering her next shot here in about 3 weeks. She is signing a release for [employer] so we can gether records from there and discuss how to make this transition. Electronically Signed By: <Electronically signed by Mario Rudd MD> Date/Time Signed: 06/07/19 5578 Name Value Range Interpretation Code Description Data Emmie rce(s) Supporting Document(s) Procedure Social History Code Duration Value Status Description Data Source(s ) Smoking 01/16/2020 12:00:00 AM EDT Patient has never smoked co mpleted Patient has never smoked [facility] ([facility]) Vital Signs ID Date Data Source UNK Name Value Range Interpretation Code Description Data Source(s) Upson body weight 105 [lb_av] 105 [lb_av] MEDEN T ([facility]) Oxygen saturation in Arterial blood by Pulse oximetry 98 % 98 % [facility] ([facility]) Body temperature 98.3 [degF] 98.3 [degF] [facility] ([facility]) Respiratory rate 18 /min 18 /min [facility] ( [facility]) Heart rate 114 /min 114 /min [facility] Body mass index (BMI) [Ratio] 31.7 kg/m2 31.7 k g/m2 [facility] ([facility]) Body weight 168.00 [lb_av] 168.00 [lb_av] MEDEN T ([facility]) Body height 61 [in_i] 61 [in_i] [facility] ([facility]) 5'1" Diastolic blood pressure 78 mm[Hg] 78 mm[Hg] [facility] ([facility]) Systolic blood pressure 114 mm[Hg] 114 mm[Hg] M EDENT ([facility]) Upson body weight 105 [lb_av] 105 [lb_av] MEDEN T ([facility]) Oxygen saturation in Arterial blood by Pulse oximetry 99 % 99 % [facility] ([facility]) Body temperature 98.7 [degF] 98.7 [degF] [facility] ([facility]) Respiratory rate 18 /min 18 /min [facility] ( [facility]) Heart rate 104 /min 104 /min [facility] ([facility]) Body mass index (BMI) [Ratio] 32.6 kg/m2 32.6 k g/m2 [facility] ([facility]) Body weight 172.50 [lb_av] 172.50 [lb_av] MEDEN T ([facility]) Body height 61 [in_i] 61 [in_i] [facility] [place] [place] 5'1" Diastolic blood pressure 64 mm[Hg] 64 mm[Hg] [facility] ([facility]) Systolic blood pressure 116 mm[Hg] 116 mm[Hg] M EDENT ([facility]) Upson body weight 105 [lb_av] 105 [lb_av] MEDEN T ([facility]) Oxygen saturation in Arterial blood by Pulse oximetry 99 % 99 % [facility] ([facility]) Body temperature 98.7 [degF] 98.7 [degF] [facility] ([facility]) Respiratory rate 18 /min 18 /min [facility] ( [facility]) Heart rate 102 /min 102 /min [facility] ([facility]) Body mass index (BMI) [Ratio] 35.6 kg/m2 35.6 k g/m2 [facility] ([facility]) Body weight 188.25 [lb_av] 188.25 [lb_av] MEDEN T ([facility]) Body height 61 [in_i] 61 [in_i] [facility] ([facility]) 5'1" Diastolic blood pressure 62 mm[Hg] 62 mm[Hg] [facility] ([facility]) Systolic blood pressure 112 mm[Hg] 112 mm[Hg] M EDENT ([facility]) Oxygen saturation in Arterial blood by Pulse oximetry 98 % 98 % [facility] ([facility]) Body temperature 98.9 [degF] 98.9 [degF] [facility] ([facility]) Respiratory rate 18 /min 18 /min [facility] ( [facility]) Heart rate 83 /min 83 /min [facility] ([facility]) Body mass index (BMI) [Ratio] 36.3 kg/m2 36.3 k g/m2 [facility] ([facility]) Body weight 192.00 [lb_av] 192.00 [lb_av] MEDEN T ([facility]) Body height 61 [in_i] 61 [in_i] [facility] [place] [place] 5'1" Diastolic blood pressure 82 mm[Hg] 82 mm[Hg] BG ([facility]) Systolic blood pressure 114 mm[Hg] 114 mm[Hg] Carolyn JENNINGS ([facility])
--- NOTE | 2020-07-17 08:59 | ECGEPIP ---
[facility] - ED Test Date: 2020-07-17 Pat Name: DENYS MAIN Department: Room: - Gender: Female Scrap Bunch Maker: sarah : 1995 Requested By: RONNIE Bradford Order Number: [id number] Reading MD: Anuel Gallegos Measurements Intervals [place] Rate: 72 P: 59 RI: 150 QRS: 59 QRSD: 89 T: 66 QT: 390 QTc: 428 Interpretive Statements SINUS RHYTHM WITH SINUS ARRHYTHMIA NSTTW ABNORMALITY(S) NO PRIORS FOR COMPARISON Electronically Signed on 07-17-2020 8:58:44 EST by Anuel Gallegos
== END 2020-07-17 06:34 | disposition home or self-care (01) ==
LOC: M ED 02:46
DX: K21.9 Gastro-esophageal reflux disease without esophagitis (principal)

== ENCOUNTER 2021-10-26 18:40 | Emergency (ER) | payer BC ==
[~2021-10-26] VITALS: Ht 152.4 cm; Wt 58.6 kg
[~2021-10-26 18:40] MED LIST changes: +CARA1TAB6 PO; +FLUO10CA18; +OMEP40CA4 PO; +PEPC1TAB5 PO
[2021-10-26 18:41] VITALS: BP 126/74
[2021-10-26 20:20] LABS: BASO % 0.3 % (0.0-1.0); EOS # 0.1 10^3/uL (0.0-0.5); EOS % 1.4 % (0.0-3.0); HEMATOCRIT 39.1 % (36.0-47.0); HEMOGLOBIN 13.3 g/dl (12.0-15.5); LYMPH # 3.4 10^3/uL (1.5-5.0); LYMPH % 34.4 % (24.0-44.0); MEAN CORPUSCULAR HEMOGLOBIN 30.9 pg (27.0-33.0); MEAN CORPUSCULAR VOLUME 90.7 fl (80.0-96.0); MONO # 0.6 10^3/uL (0.0-0.8); MONO % 6.2 % (2.0-8.0); NEUTROPHILS # 5.7 10^3/uL (1.5-8.5); NEUTROPHILS % 57.4 % (36.0-66.0); PLATELET COUNT, AUTOMATED 274 10^3/uL (150-450); RED BLOOD COUNT 4.31 10^6/uL (4.00-5.40); WHITE BLOOD COUNT 9.9 10^3/uL (4.0-10.0)
[2021-10-26 20:54] LABS: ALBUMIN 3.9 GM/DL (3.2-5.2); ALT/SGPT 24 U/L (12-78); BILIRUBIN,DIRECT 0.1 MG/DL (0.0-0.2); BILIRUBIN,TOTAL 0.3 MG/DL (0.2-1.0); BLOOD UREA NITROGEN 8 MG/DL (7-18); CALCIUM LEVEL 8.8 MG/DL (8.5-10.1); CARBON DIOXIDE LEVEL 27 MEQ/L (21-32); CHLORIDE LEVEL 109 MEQ/L (98-107); GLOMERULAR FILTRATION RATE > 60.0 (>60); GLUCOSE, FASTING 66 MG/DL (70-100); POTASSIUM SERUM 3.7 MEQ/L (3.5-5.1); SODIUM LEVEL 140 MEQ/L (136-145); TOTAL PROTEIN 7.2 GM/DL (6.4-8.2)
[2021-10-26 22:14] LABS: GC DNA AMPLIFICATION NEGATIVE (NEGATIVE)
== END 2021-10-26 22:51 | disposition home or self-care (01) ==
LOC: M ED 18:40
DX: R00.2 Palpitations (principal); F33.9 Major depressive disorder, recurrent, unspecified; F41.9 Anxiety disorder, unspecified; F15.10 Other stimulant abuse, uncomplicated; Z88.2 Allergy status to sulfonamides

== ENCOUNTER → 2022-06-14 | Outpatient (REF) | payer BC | LOC: M LAB REF 17:06 | PROVIDERS: ATTEND Nurse Practitioner Family | DX: Z01.419 Encounter for gynecological examination (general) (routine) without abnormal findings (principal) | CPT/HCPCS: 87624; G0123 ==